=== PATIENT | male | born 1990 | race Caucasian/White ===

== ENCOUNTER 2018-09-17 10:17 | Emergency (ER) | payer SELFPAY ==
[2018-09-17 11:01] VITALS: BP 137/102; PULSE 62; TEMP 99.2; BMI 31.5
[2018-09-17 11:55] LABS: URINE APPEARANCE CLEAR; URINE BILIRUBIN NEGATIVE (<2.0 mg/dL); URINE COLOR LTYELLOW; URINE GLUCOSE (UA) NEGATIVE (NEGATIVE); URINE KETONE NEGATIVE (NEGATIVE); URINE LEUK ESTERASE NEGATIVE (NEGATIVE); URINE NITRITE NEGATIVE (NEGATIVE); URINE PROTEIN NEGATIVE (NEGATIVE); URINE UROBILINOGEN NEGATIVE mg/dL (0.2-1.0)
[2018-09-17] MEDS ORDERED: AZITHROMYCIN 250 MG TABLET PO ONE (13:04)
[2018-09-17] MEDS ORDERED: AZITHROMYCIN 250 MG TABLET ONE (13:19)
--- NOTE | 2018-09-17 13:47 | PDOC ---
History of Present Illness - General Chief Complaint: Penile Drainage Stated Complaint: SICK Time Seen by Provider: 09/17/18 11:11 - History of Present Illness Initial Comments: 09/17/18 13:45 28-year-old male presents for evaluation of painful ulcerated area on his penis 3 days. No systemic symptoms. States he had multiple sexual partners sometimes uses condoms sometimes as unprotected sex. He did have a history of a prior sore about 2 years ago in the same area he is unsure of the treatment he received Past History - Past Medical History Allergies/Adverse Reactions: Allergies Allergy/AdvReac Type Severity Reaction Status Date / Time No Known Allergies Allergy Verified 09/17/18 10:59 Home Medications: Ambulatory Orders NK [No Known Home Medication] 09/17/18 COPD: No - Suicide/Smoking/Psychosocial Hx Smoking History: Never smoked Review of Systems - Review of Systems : Yes: See HPI, Pain *Physical Exam - Vital Signs Last Vital Signs Temp Pulse Resp BP Pulse Ox 99.2 F 62 18 137/102 H 99 09/17/18 10:59 09/17/18 10:59 09/17/18 10:59 09/17/18 10:59 09/17/18 10:59 - Physical Exam Comments: 09/17/18 13:46 HEAD: NC/AT EYES: Conjuntiva clear MS: Full ROM in all joints without edema NEUROLOGIC: No gross sensory or motor deficits, NVID SKIN: Normal color and temperature no lesions or rashes : There is a tender ulcerated area on the L lateral aspect of the penial shaft. There is no indication of secondary infection. Moderate Sedation - Procedure Monitoring Vital Signs: Procedure Monitoring Vital Signs Temperature 99.2 F 09/17/18 10:59 Pulse Rate 62 09/17/18 10:59 Respiratory Rate 18 09/17/18 10:59 Blood Pressure 137/102 H 09/17/18 10:59 O2 Sat by Pulse Oximetry (%) 99 09/17/18 10:59 ED Treatment Course - ADDITIONAL ORDERS Additional order review: Laboratory Results 09/17/18 11:30 Urine Color Ltyellow Urine Appearance Clear Urine pH 5.0 Ur Specific [place] 1.013 Urine Protein Negative Urine Glucose (UA) Negative Urine Ketones Negative Urine Blood Negative Urine Nitrite Negative Urine Bilirubin Negative Urine Urobilinogen Negative Ur Leukocyte Esterase Negative *DC/Admit/Observation/Transfer Diagnosis at time of Disposition: STD (male), [place] - Discharge Dispostion Disposition: HOME Condition at time of disposition: Stable Decision to Admit order: No - Referrals Referrals: Nicole Galindo MD [Staff Physician] - Rojas Cabrera MD [Staff Physician] - Christa Saini MD [Staff Physician] - Claudy Musa MD [Staff Physician] - Noelle Ramirez MD [Staff Physician] - Merline Stock MD [Staff Physician] - - Patient Instructions Printed Discharge Instructions: Facts About Sexually Transmitted Infections, How to Detect and Treat STDs, Chlamydia: The Silent STD Additional Instructions: He was treated for gonorrhea and chlamydia today. Please follow-up with primary care physician in one to 2 days for further evaluation and treatment options. Your syphilis test was negative - Post Discharge Activity
== END 2018-09-17 14:35 | disposition home or self-care (01) ==
LOC: JERFT 10:17
DX: A64 Unspecified sexually transmitted disease (principal); A51.0 Primary genital syphilis
CPT/HCPCS: 36415; 81003; 86593; 87086; 87389; 87491; 87591; 99281-25